=== PATIENT | male | born 1965 | race African-American/Black ===

== ENCOUNTER 2020-02-22 18:51 | Emergency (ER) | payer OTHER ==
[2020-02-22] MEDS ORDERED: KETOROLAC TROMETHAMINE 30 MG/1 ML VIAL IM ONE (18:56)
[2020-02-22 18:58] VITALS: BP 145/91; PULSE 90; TEMP 98.8; BMI 34.3
[2020-02-22] MEDS ORDERED: KETOROLAC TROMETHAMINE 30 MG/1 ML VIAL ONE (18:59)
== END 2020-02-22 19:08 | disposition home or self-care (01) ==
LOC: JER 18:51
PROC: 3E0233Z Introduction of Anti-inflammatory into Muscle, Percutaneous Approach (ICD-10-PCS; principal; 2020-02-22)
DX: M62.830 Muscle spasm of back (principal)
CPT/HCPCS: 99284-25